=== PATIENT | female | born 1995 | race Two or more races ===

== ENCOUNTER 2018-04-20 06:53 | Inpatient (IN) | payer OTHER ==
[~2018-04-20] VITALS: Ht 144.8 cm; Wt 84.0 kg
[2018-04-20] MEDS ORDERED: D5%-LACTATED RINGERS 1,000 ML IV SCH (07:24)
[2018-04-20] MEDS ORDERED: OXYTOCIN 30U/ 0.9% NaCL 500ML 500 ML IV ONE (07:24)
[2018-04-20] MEDS ORDERED: TERBUTALINE 1 MG/ML, 1ML ONE ×2 (07:29→08:24)
[2018-04-20] MEDS ORDERED: MISOPROSTOL 200 MCG TABLET ONE (07:29)
[2018-04-20] MEDS ORDERED: LIDOCAINE/PF 1%, 30ML ONE (07:29)
[2018-04-20] MEDS ORDERED: NEWBORN KIT ONE (07:29)
[2018-04-20] MEDS ORDERED: METOCLOPRAMIDE 5 MG/ML, 2ML IVPush PRN (07:30)
[2018-04-20] MEDS ORDERED: SODIUM CITRATE/CITRIC ACID 30 ML UDC PO PRN (07:30)
[2018-04-20] MEDS ORDERED: TERBUTALINE 1 MG/ML, 1ML IVPush PRN (07:30)
[2018-04-20] MEDS ORDERED: ONDANSETRON 2MG/ML, 2ML IVPush PRN (07:30)
[2018-04-20] MEDS ORDERED: FENTANYL PF 100 MCG/2ML IV PRN (07:30)
[2018-04-20] MEDS ORDERED: FENTANYL PF 100 MCG/2ML IVPush PRN (07:30)
[2018-04-20] MEDS ORDERED: OXYTOCIN 30U/ 0.9% NaCL 500ML 500 ML ONE (07:30)
[2018-04-20] MEDS: LACTATED RINGERS 1,000 ML IV SCH ×6 (07:43→19:16)
[2018-04-20 07:55] VITALS: BP 130/70
[2018-04-20 07:55] LABS: BASOPHILS # (AUTO) 0.04 x10^3/uL (0-0.1); BASOPHILS % (AUTO) 0 % (0-1); EOSINOPHILS % (AUTO) 0 % (1-7); LYMPHOCYTES # (AUTO) 1.93 x10^3/uL (1-3.4); LYMPHOCYTES % (AUTO) 19 % (22-44); MD NO; MEAN CORPUSCULAR HEMOGLOBIN 27.5 pg (27.0-34.8); MEAN CORPUSCULAR HGB CONC 33.7 g/dL (32.4-35.8); MEAN CORPUSCULAR VOLUME 81.8 fL (80-100); MEAN PLATELET VOLUME 8.8 fL (7.4-10.4); MONOCYTES # (AUTO) 0.68 x10^3/uL (0.2-0.8); MONOCYTES % (AUTO) 7 % (2-9); NEUTROPHILS # (AUTO) 7.51 x10^3/uL (1.8-6.8); NEUTROPHILS % (AUTO) 74 % (42-75); PLATELET COUNT 297 x10^3/uL (130-400); RED BLOOD COUNT 4.36 x10^6/uL (3.82-5.3); RED CELL DISTRIBUTION WIDTH 17.6 % (9.6-15.2)
[2018-04-20] MEDS ORDERED: SODIUM CITRATE/CITRIC ACID 30 ML UDC ONE (08:25)
[2018-04-20] MEDS ORDERED: METOCLOPRAMIDE 5 MG/ML, 2ML ONE (08:26)
[2018-04-20] MEDS ORDERED: morphine SULFATE/PF 0.5 MG/ML, 10ML ONE (08:35)
[2018-04-20] MEDS ORDERED: LACTATED RINGERS 1,000 ML INTUTE PRN (09:00)
[2018-04-20] MEDS ORDERED: LACTATED RINGERS 1,000 ML INTUTE SCH (09:00)
[2018-04-20] MEDS ORDERED: ACETAMINOPHEN 325 MG TABLET ONE (09:42)
[2018-04-20] MEDS: ACETAMINOPHEN 325 MG TABLET PO PRN ×2 (09:45→20:57)
[2018-04-20 10:02] LABS: MICROSCOPIC INDICATED
[2018-04-20 10:04] LABS: CULTURE INDICATED? YES
[2018-04-20] MEDS ORDERED: OXYTOCIN 30U/ 0.9% NaCL 500ML 500 ML IV PRN (11:56)
[2018-04-20] MEDS ORDERED: FENTANYL/BUPIV./NS/PF 250 ML EPIDCONT ONE ×2 (13:00→13:07)
[2018-04-20] MEDS ORDERED: FENTANYL PF 100 MCG/2ML ONE ×3 (13:01→17:06)
[2018-04-20] MEDS ORDERED: BUPIVACAINE 0.25% ONE (13:02)
[2018-04-20] MEDS ORDERED: LIDOCAINE-MPF 2% ,5ML ONE ×2 (13:04→17:39)
[2018-04-20] MEDS ORDERED: BUPIVACAINE/PF 0.25% ONE ×2 (13:04→17:39)
[2018-04-20] MEDS ORDERED: CEFAZOLIN 1,000 MG ONE ×2 (13:04→17:39)
[2018-04-20] MEDS ORDERED: LIDOCAINE/PF 1.5-EPI 1:200K, 30 ML ONE (13:04)
[2018-04-20] MEDS ORDERED: OXYTOCIN 30U/ 0.9% NaCL 500ML 500 ML IV SCH (16:58)
[2018-04-20] MEDS ORDERED: LACTATED RINGERS 1,000 ML IVBOLUS ONE (17:00)
[2018-04-20] MEDS: OXYTOCIN 30U/ 0.9% NaCL 500ML 500 ML IV SCH (17:06)
[2018-04-20] MEDS ORDERED: ACETAMINOPHEN 325 MG TABLET PO PRN (17:30)
[2018-04-20] MEDS ORDERED: METHYLERGONOVINE 0.2 MG/ML IM PRN (17:30)
[2018-04-20] MEDS ORDERED: MEPERIDINE/PF 50 MG/ML IM PRN (17:30)
[2018-04-20] MEDS ORDERED: BISACODYL 10 MG SUPP PR PRN (17:30)
[2018-04-20] MEDS ORDERED: ONDANSETRON 2MG/ML, 2ML IV PRN (17:30)
[2018-04-20] MEDS ORDERED: CARBOPROST TROMETHAMINE 250 MCG/ML, 1ML IM PRN (17:30)
[2018-04-20] MEDS ORDERED: OXYcodone/APAP 5/325MG TABLET PO PRN (17:30)
[2018-04-20] MEDS ORDERED: MISOPROSTOL 200 MCG TABLET PR PRN (17:30)
[2018-04-20] MEDS ORDERED: EPHEDRINE 50 MG/ML, 1ML ONE (17:39)
[2018-04-20] MEDS ORDERED: PHENYLEPHRINE 10 MG/ML ONE (17:39)
[2018-04-20] MEDS ORDERED: OXYTOCIN 10 UNITS/ML, 1ML ONE (17:39)
[2018-04-20 20:25] VITALS: BP 123/78
[2018-04-20] MEDS ORDERED: GENTAMICIN PER PHARMACY MC PRN (20:30)
[2018-04-20] MEDS: KETOROLAC 30 MG/1 ML IV SCH (20:57)
[2018-04-20] MEDS ORDERED: GENTAMICIN 300 MG in SODIUM CHLORIDE 0.9% 100 ML IV SCH (21:00)
[2018-04-20] MEDS ORDERED: PHARMACOKINETIC CONSULTATION MC ONE (21:00)
[2018-04-20] MEDS ORDERED: PHARMACOKINETIC MONITORING MC PRN (21:00)
[2018-04-20 21:50] VITALS: BP 104/65
[2018-04-20 21:50] LABS: BASOPHILS # (AUTO) 0.02 x10^3/uL (0-0.1); BASOPHILS % (AUTO) 0 % (0-1); EOSINOPHILS % (AUTO) 0 % (1-7); LYMPHOCYTES # (AUTO) 1.74 x10^3/uL (1-3.4); LYMPHOCYTES % (AUTO) 13 % (22-44); MD NO; MEAN CORPUSCULAR HEMOGLOBIN 27.5 pg (27.0-34.8); MEAN CORPUSCULAR HGB CONC 33.6 g/dL (32.4-35.8); MEAN CORPUSCULAR VOLUME 81.8 fL (80-100); MEAN PLATELET VOLUME 9.3 fL (7.4-10.4); MONOCYTES # (AUTO) 0.73 x10^3/uL (0.2-0.8); MONOCYTES % (AUTO) 6 % (2-9); NEUTROPHILS # (AUTO) 10.72 x10^3/uL (1.8-6.8); NEUTROPHILS % (AUTO) 81 % (42-75); PLATELET COUNT 262 x10^3/uL (130-400); RED BLOOD COUNT 3.93 x10^6/uL (3.82-5.3); RED CELL DISTRIBUTION WIDTH 17.4 % (9.6-15.2)
[2018-04-20] MEDS: AMPICILLIN 2 GM in SODIUM CHLORIDE 0.9% 100 ML IV SCH (22:44)
[2018-04-21 00:15] VITALS: BP 98/61
[2018-04-21] MEDS: LACTATED RINGERS 1,000 ML IV SCH ×6 (01:06→23:06)
[2018-04-21] MEDS: KETOROLAC 30 MG/1 ML IV SCH ×4 (02:43→19:17)
[2018-04-21] MEDS: OXYTOCIN 30U/ 0.9% NaCL 500ML 500 ML IV SCH (03:06)
[2018-04-21] MEDS: AMPICILLIN 2 GM in SODIUM CHLORIDE 0.9% 100 ML IV SCH ×4 (04:40→23:23)
[2018-04-21 04:44] VITALS: BP 98/65
[2018-04-21 04:52] LABS: BASOPHILS # (AUTO) 0.02 x10^3/uL (0-0.1); BASOPHILS % (AUTO) 0 % (0-1); EOSINOPHILS % (AUTO) 0 % (1-7); LYMPHOCYTES # (AUTO) 1.51 x10^3/uL (1-3.4); LYMPHOCYTES % (AUTO) 13 % (22-44); MD NO; MEAN CORPUSCULAR HEMOGLOBIN 27.7 pg (27.0-34.8); MEAN CORPUSCULAR HGB CONC 33.8 g/dL (32.4-35.8); MEAN PLATELET VOLUME 8.9 fL (7.4-10.4); MONOCYTES # (AUTO) 0.73 x10^3/uL (0.2-0.8); MONOCYTES % (AUTO) 6 % (2-9); NEUTROPHILS # (AUTO) 9.44 x10^3/uL (1.8-6.8); NEUTROPHILS % (AUTO) 81 % (42-75); PLATELET COUNT 236 x10^3/uL (130-400); RED BLOOD COUNT 3.66 x10^6/uL (3.82-5.3); RED CELL DISTRIBUTION WIDTH 18.1 % (9.6-15.2)
[2018-04-21 08:03] VITALS: BP 109/73
[2018-04-21] MEDS: DOCUSATE 100 MG CAPSULE PO PRN ×2 (09:06→23:23)
[2018-04-21] MEDS: PRENATAL VIT/IRON/FA 1 EACH TABLET PO SCH (09:06)
[2018-04-21] MEDS ORDERED: GENTAMICIN 300 MG in SODIUM CHLORIDE 0.9% 100 ML IV SCH ×2 (10:15→21:00)
[2018-04-21] MEDS: OXYcodone IR 5MG TABLET PO PRN ×3 (11:29→23:23)
[2018-04-21] MEDS: ACETAMINOPHEN 325 MG TABLET PO PRN ×3 (11:29→23:23)
[2018-04-21] MEDS ORDERED: DIPH,PERTUSS(ACELL),TET VAC/PF NC IM-VACC ONE ×2 (13:12→13:30)
[2018-04-21] MEDS ORDERED: DIPH,PERTUSS(ACELL),TET PED/PF 0.5 ML IM-VACC ONE (13:30)
[2018-04-21 14:15] VITALS: BP 111/75
[2018-04-21 19:30] VITALS: BP 101/58
[2018-04-22] MEDS: LACTATED RINGERS 1,000 ML IV SCH ×5 (01:06→19:06)
[2018-04-22] MEDS: KETOROLAC 30 MG/1 ML IV SCH ×3 (01:20→14:04)
[2018-04-22] MEDS: AMPICILLIN 2 GM in SODIUM CHLORIDE 0.9% 100 ML IV SCH (05:31)
[2018-04-22 08:00] VITALS: BP 103/69
[2018-04-22] MEDS: DOCUSATE 100 MG CAPSULE PO PRN (08:03)
[2018-04-22] MEDS: OXYcodone IR 5MG TABLET PO PRN (08:03)
[2018-04-22] MEDS: PRENATAL VIT/IRON/FA 1 EACH TABLET PO SCH (08:03)
[2018-04-22] MEDS: FERROUS GLUCONATE 324 MG TABLET PO SCH (17:33)
[2018-04-22] MEDS: IBUPROFEN 600 MG TABLET PO PRN (17:33)
[2018-04-22 19:10] VITALS: BP 113/76
[2018-04-23 07:00] VITALS: BP 120/82
[2018-04-23] MEDS: PRENATAL VIT/IRON/FA 1 EACH TABLET PO SCH (07:40)
[2018-04-23] MEDS: IBUPROFEN 600 MG TABLET PO PRN (07:41)
[2018-04-23] MEDS: DOCUSATE 100 MG CAPSULE PO PRN (07:41)
[2018-04-23] MEDS: FERROUS GLUCONATE 324 MG TABLET PO SCH ×2 (07:41→13:36)
[2018-04-23] MEDS ORDERED: DOCU-131 PO (11:38)
[2018-04-23] MEDS ORDERED: OXYC-302 PO (11:38)
[2018-04-23] MEDS ORDERED: IBUP-1222 PO (11:38)
[2018-04-23] MEDS ORDERED: FERR324T8 PO (11:39)
== END 2018-04-23 15:30 | disposition home or self-care (01) | DRG 766 ==
LOC: LDOP 06:53 → LDIP 07:20 → 2NW 20:15
PROVIDERS: ADMIT Obstetrics & Gynecology; ATTEND Obstetrics & Gynecology
PROC: 10D00Z1 Extraction of Products of Conception, Low, Open Approach (ICD-10-PCS; principal; 2018-04-20)
PROC: 0T9B70Z Drainage of Bladder with Drainage Device, Via Natural or Artificial Opening (ICD-10-PCS; 2018-04-20)
DX: O76 Abnormality in fetal heart rate and rhythm complicating labor and delivery (principal); Z37.0 Single live birth; O77.0 Labor and delivery complicated by meconium in amniotic fluid; O99.824 Streptococcus B carrier state complicating childbirth; O69.81X0 Labor and delivery complicated by cord around neck, without compression, not applicable or unspecified; Z3A.39 39 weeks gestation of pregnancy
CPT/HCPCS: 36415; J7121; 81001; 82565; 82803; 84520; 85025; 86850; 86900; 87040; 87086; 90700; 90715; G0378; J0290; J0690; J1885; J2274; J3010; J3490; J1580; J2370; J2590; J2765; J3105; J7120

== ENCOUNTER 2019-06-27 09:51 | Inpatient (IN) | payer OTHER ==
[~2019-06-27] VITALS: Ht 149.9 cm; Wt 82.7 kg
[~2019-06-27 09:51] MED LIST: DOCU-131 PO; FERR324T8 PO; IBUP-1222 PO; OXYC-302 PO
[2019-06-27] MEDS ORDERED: PLEASE ENTER HEIGHT AND WEIGHT MC SCH (11:00)
[2019-06-27] MEDS: LACTATED RINGERS 1,000 ML IV SCH ×6 (11:30→22:43)
[2019-06-27 12:28] VITALS: BP 107/53
[2019-06-27] MEDS ORDERED: SODIUM CITRATE/CITRIC ACID 30 ML UDC PO ONE (13:00)
[2019-06-27] MEDS ORDERED: LACTATED RINGERS 1,000 ML IVBOLUS ONE (13:00)
[2019-06-27] MEDS ORDERED: METOCLOPRAMIDE 5 MG/ML, 2ML IV ONE (13:00)
[2019-06-27] MEDS ORDERED: SODIUM CITRATE/CITRIC ACID 30 ML UDC ONE (13:01)
[2019-06-27] MEDS ORDERED: OXYTOCIN 30U/ 0.9% NaCL 500ML 500 ML ONE (13:01)
[2019-06-27] MEDS ORDERED: NEWBORN KIT ONE (13:01)
[2019-06-27] MEDS ORDERED: METOCLOPRAMIDE 5 MG/ML, 2ML ONE (13:01)
[2019-06-27 13:33] LABS: BASOPHILS # (AUTO) 0.01 x10^3/uL (0-0.1); BASOPHILS % (AUTO) 0 % (0-1); EOSINOPHILS # (AUTO) 0.06 x10^3/uL (0-0.4); EOSINOPHILS % (AUTO) 1 % (1-7); LYMPHOCYTES # (AUTO) 1.04 x10^3/uL (1-3.4); LYMPHOCYTES % (AUTO) 14 % (22-44); MD NO; MEAN CORPUSCULAR HEMOGLOBIN 24.9 pg (27.0-34.8); MEAN CORPUSCULAR HGB CONC 32.2 g/dL (32.4-35.8); MEAN CORPUSCULAR VOLUME 77.3 fL (80-100); MEAN PLATELET VOLUME 8.6 fL (7.4-10.4); MONOCYTES # (AUTO) 0.48 x10^3/uL (0.2-0.8); MONOCYTES % (AUTO) 6 % (2-9); NEUTROPHILS # (AUTO) 6.09 x10^3/uL (1.8-6.8); NEUTROPHILS % (AUTO) 79 % (42-75); PLATELET COUNT 327 x10^3/uL (130-400); RED BLOOD COUNT 4.32 x10^6/uL (3.82-5.3); RED CELL DISTRIBUTION WIDTH 19.1 % (9.6-15.2)
[2019-06-27] MEDS: OXYTOCIN 30U/ 0.9% NaCL 500ML 500 ML IV SCH (14:56)
[2019-06-27] MEDS ORDERED: MORPHINE SULFATE 4 MG/ML, 1ML IVPush PRN (15:00)
[2019-06-27] MEDS: KETOROLAC 30 MG/1 ML IV SCH ×2 (15:00→21:56)
[2019-06-27] MEDS ORDERED: ONDANSETRON 2MG/ML, 2ML IV PRN (15:00)
[2019-06-27] MEDS ORDERED: ACETAMINOPHEN 325 MG TABLET PO PRN (15:00)
[2019-06-27] MEDS ORDERED: MEPERIDINE/PF 50 MG/ML IM PRN (15:00)
[2019-06-27] MEDS ORDERED: METHYLERGONOVINE 0.2 MG/ML IM PRN (15:00)
[2019-06-27] MEDS ORDERED: OXYcodone/APAP 5/325MG TABLET PO PRN ×2 (15:00)
[2019-06-27] MEDS ORDERED: IBUPROFEN 600 MG TABLET PO PRN (15:00)
[2019-06-27] MEDS ORDERED: SIMETHICONE 80 MG CHEW TAB PO PRN (15:00)
[2019-06-27] MEDS ORDERED: MISOPROSTOL 200 MCG TABLET PR PRN (15:00)
[2019-06-27] MEDS ORDERED: CARBOPROST TROMETHAMINE 250 MCG/ML, 1ML IM PRN (15:00)
[2019-06-27] MEDS ORDERED: morphine SULFATE 10 MG/ML, 1ML IVPush PRN (15:00)
[2019-06-27] MEDS ORDERED: BISACODYL 10 MG SUPP PR PRN (15:00)
[2019-06-27] MEDS ORDERED: DIPH,PERTUSS(ACELL),TET VAC/PF NC IM-VACC PRN (15:00)
[2019-06-27] MEDS ORDERED: GLYCERIN ADULT SUPP PR PRN (15:00)
[2019-06-27] MEDS ORDERED: morphine SULFATE/PF 0.5 MG/ML, 10ML ONE (15:05)
[2019-06-27] MEDS ORDERED: FENTANYL PF 100 MCG/2ML ONE (15:06)
[2019-06-27] MEDS ORDERED: WATER-INJECTION,STERILE 10 ML IV ONE (15:08)
[2019-06-27] MEDS ORDERED: ONDANSETRON 2MG/ML, 2ML ONE (15:08)
[2019-06-27] MEDS ORDERED: OXYTOCIN 10 UNITS/ML, 1ML ONE ×2 (15:08→15:32)
[2019-06-27] MEDS ORDERED: CEFAZOLIN 1,000 MG ONE (15:08)
[2019-06-27] MEDS ORDERED: KETOROLAC 30 MG/1 ML ONE (15:08)
[2019-06-27] MEDS ORDERED: DEXAMETHASONE 4 MG/ML, 1ML ONE (15:08)
[2019-06-27] MEDS ORDERED: PHENYLEPHRINE 10 MG/ML ONE (15:08)
[2019-06-27] MEDS ORDERED: SODIUM CHLORIDE 0.9% PF 10ML ONE (15:08)
[2019-06-27 18:31] VITALS: BP 103/69
[2019-06-27 19:15] VITALS: BP 106/72
[2019-06-27] MEDS: DOCUSATE 100 MG CAPSULE PO PRN (21:57)
[2019-06-27 23:46] VITALS: BP 98/63
[2019-06-28] MEDS: LACTATED RINGERS 1,000 ML IV SCH ×6 (00:56→22:56)
[2019-06-28] MEDS: OXYTOCIN 30U/ 0.9% NaCL 500ML 500 ML IV SCH ×3 (00:56→20:56)
[2019-06-28] MEDS ORDERED: OXYcodone/APAP 5/325MG TABLET PO PRN (01:00)
[2019-06-28 04:00] VITALS: BP 96/64
[2019-06-28] MEDS: KETOROLAC 30 MG/1 ML IV SCH ×4 (04:06→22:25)
[2019-06-28 05:49] LABS: BASOPHILS # (AUTO) 0.04 x10^3/uL (0-0.1); BASOPHILS % (AUTO) 0 % (0-1); EOSINOPHILS % (AUTO) 0 % (1-7); LYMPHOCYTES # (AUTO) 1.59 x10^3/uL (1-3.4); LYMPHOCYTES % (AUTO) 16 % (22-44); MD NO; MEAN CORPUSCULAR HEMOGLOBIN 24.7 pg (27.0-34.8); MEAN CORPUSCULAR HGB CONC 32.2 g/dL (32.4-35.8); MEAN CORPUSCULAR VOLUME 76.8 fL (80-100); MEAN PLATELET VOLUME 8.4 fL (7.4-10.4); MONOCYTES # (AUTO) 0.65 x10^3/uL (0.2-0.8); MONOCYTES % (AUTO) 7 % (2-9); NEUTROPHILS # (AUTO) 7.68 x10^3/uL (1.8-6.8); NEUTROPHILS % (AUTO) 77 % (42-75); PLATELET COUNT 286 x10^3/uL (130-400); RED CELL DISTRIBUTION WIDTH 19.2 % (9.6-15.2)
[2019-06-28 07:50] VITALS: BP 91/60
[2019-06-28] MEDS: PRENATAL VIT/IRON/FA 1 EACH TABLET PO SCH (07:56)
[2019-06-28] MEDS: DOCUSATE 100 MG CAPSULE PO PRN ×2 (07:56→22:25)
[2019-06-28] MEDS: FERROUS SULFATE 325 MG TABLET PO SCH (16:15)
[2019-06-28 20:10] VITALS: BP 100/63
[2019-06-29] MEDS: KETOROLAC 30 MG/1 ML IV SCH ×2 (03:54→10:04)
[2019-06-29] MEDS: OXYTOCIN 30U/ 0.9% NaCL 500ML 500 ML IV SCH (06:56)
[2019-06-29] MEDS: LACTATED RINGERS 1,000 ML IV SCH ×2 (06:56)
[2019-06-29] MEDS: FERROUS SULFATE 325 MG TABLET PO SCH (07:47)
[2019-06-29] MEDS: PRENATAL VIT/IRON/FA 1 EACH TABLET PO SCH (07:47)
[2019-06-29] MEDS: DOCUSATE 100 MG CAPSULE PO PRN (07:47)
[2019-06-29 07:49] VITALS: BP 103/69
[2019-06-29] MEDS ORDERED: FERR325T5 PO (08:42)
[2019-06-29] MEDS ORDERED: FLU VACC QS2019-20 36MOS UP/PF 0.5 ML IM-VACC ONE (10:00)
[2019-06-29] MEDS ORDERED: IBUPROFEN 600 MG TABLET PO PRN (15:00)
== END 2019-06-29 12:08 | disposition home or self-care (01) | DRG 788 ==
LOC: LDOP 09:51 → LDIP 13:01 → 2NW 18:01
PROVIDERS: ADMIT Obstetrics & Gynecology; ATTEND Obstetrics & Gynecology
PROC: 10D00Z1 Extraction of Products of Conception, Low, Open Approach (ICD-10-PCS; principal; 2019-06-27)
DX: O34.211 Maternal care for low transverse scar from previous cesarean delivery (principal); Z37.0 Single live birth; Z3A.38 38 weeks gestation of pregnancy; E66.9 Obesity, unspecified; K66.0 Peritoneal adhesions (postprocedural) (postinfection); O77.0 Labor and delivery complicated by meconium in amniotic fluid; O99.214 Obesity complicating childbirth; O99.62 Diseases of the digestive system complicating childbirth
CPT/HCPCS: 36415; 82803; 85025; 86850; 86900; 87389; 88305; 88341; 88342; 90686; G0378; J0690; J1100; J1885; J2274; J2405; J3010; J2370; J2590; J2765; J7120